=== PATIENT | female | born 1990 | race African-American/Black ===

== ENCOUNTER 2016-11-05 09:42 | Inpatient (IN) | payer OTHER, MEDICAID ==
[~2016-11-05] VITALS: Ht 160 cm; Wt 86.8 kg
[2016-12-26] VITALS (19 sets, daily range): BP systolic 112–132; BP diastolic 58–96; PULSE 70–95; TEMP 97.4–98.9
[2016-12-26 06:35] LABS: BASO % 0.3 % (0.0-2.0); EOS # 0.1 (0.0-0.7); EOS % 1.4 % (0-4.0); GRAN # 4.3 (1.4-6.5); HEMATOCRIT 37.9 % (37.0-47.0); HEMOGLOBIN 13.3 g/dl (12.5-16.0); LYMPH # 1.4 (1.2-3.4); LYMPH % 21.7 % (20.0-51.0); MEAN CELL VOLUME 79 fl (80.0-100.0); MEAN CORPUSCULAR HEMOGLOBIN 28 pg (27.0-31.0); MEAN CORPUSCULAR HGB CONC 35 g/dl (33.0-37.0); MEAN PLATELET VOLUME 11.7 fl (7.4-10.4); MONO # 0.5 (0.1-0.6); MONO % 7.3 % (1.7-9.3); PLATELET COUNT 166 K/mm3 (130-400); RED BLOOD COUNT 4.83 M/mm3 (4.10-5.30); REDCELL DISTRIBUTION WIDTH-CV 13.2 % (11.5-14.5); WHITE BLOOD COUNT 6.3 K/mm3 (4.8-10.8)
[2016-12-26] MEDS ORDERED: PRENATAL1 TA7 PO (06:39)
[2016-12-27 07:35] VITALS: BP 125/89; PULSE 70; TEMP 97.8
[2016-12-27 09:13] LABS: BASO % 0.3 % (0.0-2.0); EOS # 0.1 (0.0-0.7); EOS % 1.2 % (0-4.0); GRAN % 76.9 % (42.2-75.2); LYMPH # 1.2 (1.2-3.4); LYMPH % 15.5 % (20.0-51.0); MEAN CELL VOLUME 81 fl (80.0-100.0); MEAN CORPUSCULAR HGB CONC 34 g/dl (33.0-37.0); MONO # 0.5 (0.1-0.6); MONO % 5.8 % (1.7-9.3); PLATELET COUNT 156 K/mm3 (130-400); RED BLOOD COUNT 4.29 M/mm3 (4.10-5.30); REDCELL DISTRIBUTION WIDTH-CV 13.4 % (11.5-14.5); WHITE BLOOD COUNT 7.8 K/mm3 (4.8-10.8)
[2016-12-27 09:31] LABS: HEMATOCRIT 34.7 % (37.0-47.0); HEMOGLOBIN 11.9 g/dl (12.5-16.0); MEAN CORPUSCULAR HEMOGLOBIN 28 pg (27.0-31.0)
[2016-12-27 15:40] VITALS: BP 139/84; PULSE 71; TEMP 98.2
[2016-12-27 21:53] VITALS: BP 141/81; PULSE 75; TEMP 98.4
[2016-12-28 08:00] VITALS: BP 139/90; PULSE 88; TEMP 98.2
[2016-12-28 16:15] VITALS: BP 133/81; PULSE 84; TEMP 98.3
[2016-12-28 20:20] VITALS: BP 124/76; PULSE 87; TEMP 99.5
[2016-12-29] MEDS ORDERED: MOTRIN 800800 MG/TAB PO (07:23)
[2016-12-29] MEDS ORDERED: PERCOCET 325 MG1 TA2 PO (07:23)
[2016-12-29 07:55] VITALS: BP 138/80; PULSE 76; TEMP 98.4
[2016-12-29 15:50] VITALS: BP 148/89; PULSE 74; TEMP 97.9
== END 2016-12-29 16:30 | disposition home or self-care (01) | DRG 766 ==
LOC: LDRO 09:42 → EDSTATUS 12:15 → OB 12-26 05:24
PROVIDERS: Obstetrics & Gynecology
PROC: 10D00Z1 Extraction of Products of Conception, Low, Open Approach (ICD-10-PCS; principal; 2016-12-26)
DX: O34.211 Maternal care for low transverse scar from previous cesarean delivery (principal); N85.8 Other specified noninflammatory disorders of uterus; O99.02 Anemia complicating childbirth; D57.3 Sickle-cell trait; Z3A.39 39 weeks gestation of pregnancy; Z37.0 Single live birth
CPT/HCPCS: J0690; J1885; J2270; J2370; J2405; J2590; J2765; J7120

== ENCOUNTER → 2017-01-06 | Outpatient (CLI) | payer OTHER, MEDICAID ==
[~2017-01-06] MED LIST: MOTRIN 800800 MG/TAB PO; PERCOCET 325 MG1 TA2 PO; PRENATAL1 TA7 PO
== END ==
LOC: OLC 09:22
DX: Z39.1 Encounter for care and examination of lactating mother (principal); Z71.89 Other specified counseling

== ENCOUNTER → 2017-02-27 | Outpatient (CLI) | payer OTHER ==
[2017-02-27 10:19] LABS: HEMATOCRIT 37.9 % (37.0-47.0); HEMOGLOBIN 12.9 g/dl (12.5-16.0); MEAN CELL VOLUME 81 fl (80.0-100.0); MEAN CORPUSCULAR HEMOGLOBIN 28 pg (27.0-31.0); MEAN CORPUSCULAR HGB CONC 34 g/dl (33.0-37.0); MEAN PLATELET VOLUME 11.5 fl (7.4-10.4); PLATELET COUNT 264 K/mm3 (130-400); RED BLOOD COUNT 4.67 M/mm3 (4.10-5.30); REDCELL DISTRIBUTION WIDTH-CV 14.7 % (11.5-14.5); WHITE BLOOD COUNT 6.3 K/mm3 (4.8-10.8)
[2017-02-27 10:34] LABS: ADJUSTED CALCIUM 8.8 mg/dL (8.4-10.2); ALBUMIN 4.2 gm/dL (3.5-5.0); BILIRUBIN,TOTAL 0.7 mg/dL (0.0-1.0); CREATININE, serum 0.89 mg/dL (0.52-1.25); POTASSIUM 4.1 mmol/L (3.4-5.0); TOTAL PROTEIN 7.7 gm/dL (6.4-8.2)
[2017-02-27 11:04] LABS: THYROID STIMULATING HORMONE 2.82 uIU/mL (0.465-4.680)
== END ==
LOC: COL.LAB 09:36
DX: R00.2 Palpitations (principal)

== ENCOUNTER → 2017-03-13 | Outpatient (CLI) | payer OTHER | LOC: COL.CARD 10:35 | DX: R00.2 Palpitations (principal) ==

== ENCOUNTER 2018-09-24 10:45 | Inpatient (IN) | payer OTHER ==
[~2018-09-24] VITALS: Ht 160 cm; Wt 94.5 kg
[2018-10-08] VITALS (17 sets, daily range): BP systolic 106–134; BP diastolic 56–83; PULSE 67–87; TEMP 97.8–98.3
--- NOTE | 2018-10-08 10:10 | NUR ---
Patient ambulatory to room, changed into gown, FHR/TOCO monitors placed and explained. Patient states she has been havinc contractions, denies leaking of fluid or bleeding. Consents gone over and signed. Plan of care discussed. 1055: IV started in right hand per Holden TRAYLOR. Lab here to draw admission labs. IV in left hand showing phlebitis. IV removed and patient tolerates well. 1122: Patient off monitor. Mike Lamas at bedside to place IV. 20g IV started in left upper arm, patient tolerates well. Superpubic are shaved and abdomen scrubbed with CHG solution 1125: Patient ambulatory to OR
[2018-10-08] MEDS ORDERED: VITAMIN B COMPL1 SGL PO (10:49)
[2018-10-08] MEDS ORDERED: GOOD SENSE SLEE25 M1 PO (10:50)
[2018-10-08 11:12] LABS: BASO % 0.3 % (0.0-2.0); EOS # 0.1 (0.0-0.7); EOS % 1.4 % (0-4.0); GRAN # 4.7 (1.4-6.5); GRAN % 70.8 % (42.2-75.2); HEMATOCRIT 39.1 % (37.0-47.0); HEMOGLOBIN 13.5 g/dl (12.5-16.0); LYMPH % 15.5 % (20.0-51.0); MEAN CELL VOLUME 82 fl (80.0-100.0); MEAN CORPUSCULAR HEMOGLOBIN 28 pg (27.0-31.0); MEAN CORPUSCULAR HGB CONC 35 g/dl (33.0-37.0); MEAN PLATELET VOLUME 11.3 fl (7.4-10.4); MONO # 0.7 (0.1-0.6); MONO % 11.2 % (1.7-9.3); PLATELET COUNT 181 K/mm3 (130-400); RED BLOOD COUNT 4.79 M/mm3 (4.10-5.30); REDCELL DISTRIBUTION WIDTH-CV 13.8 % (11.5-14.5)
--- NOTE | 2018-10-08 16:03 | NUR ---
Pericare/catheter care done, new gown/chucks/pads on, Abdominal binder on.
[2018-10-09 01:55] VITALS: BP 121/76; PULSE 70; TEMP 98.2
[2018-10-09 07:45] VITALS: BP 120/88; PULSE 82; TEMP 98.8
[2018-10-09 21:00] VITALS: BP 119/77; PULSE 74; TEMP 98.2
--- NOTE | 2018-10-09 21:25 | NUR ---
HELP PT TO BE POSITIONED ON HER SIDE DUE TO GAS PAINS
--- NOTE | 2018-10-10 02:13 | NUR ---
PT STATES SHE WAS ABLE TO SLEEP WELL AND DEEPLY ON HER SIDE-
[2018-10-10 07:30] VITALS: BP 110/70; PULSE 82; TEMP 98.8
--- NOTE | 2018-10-10 16:00 | NUR ---
Rests in bed, alert, baby. Denies any needs at this time.
[2018-10-10 16:30] VITALS: BP 120/82; PULSE 77; TEMP 98.1
[2018-10-10 21:30] VITALS: BP 126/85; PULSE 79; TEMP 98.5
[2018-10-11 07:00] VITALS: BP 135/82; PULSE 79
[2018-10-11] MEDS ORDERED: MOTRIN 600600 MG/TAB PO (09:04)
[2018-10-11] MEDS ORDERED: PERCOCET 325 MG1 TA2 PO (09:05)
--- NOTE | 2018-10-11 10:00 | NUR ---
Discharge instructions reviewed. Patient states understanding, denies questions or concerns. Bands checked,
== END 2018-10-11 10:45 | disposition home or self-care (01) | DRG 788 ==
LOC: OB 10-08 07:27 → LDR 10-08 10:44 → OB 10-11 10:45
PROVIDERS: ADMIT Obstetrics & Gynecology
PROC: 10D00Z1 Extraction of Products of Conception, Low, Open Approach (ICD-10-PCS; principal; 2018-10-08)
DX: O34.211 Maternal care for low transverse scar from previous cesarean delivery (principal); Z3A.49 Greater than 42 weeks gestation of pregnancy; Z37.0 Single live birth; O99.02 Anemia complicating childbirth; D57.3 Sickle-cell trait
CPT/HCPCS: J0690; J1885; J2370; J2405; J2590; J3010; J7120